=== PATIENT | female | born 1950 | race African-American/Black ===

== ENCOUNTER → 2023-08-18 08:51 | Outpatient (REF) | payer OTHER, SELFPAY | LOC: RCS 08:51 | PROVIDERS: ATTENDING PHYSICIAN Emergency Medicine | DX: I10 Essential (primary) hypertension (principal); R01.1 Cardiac murmur, unspecified; M25.511 Pain in right shoulder | CPT/HCPCS: 73030; 93306 ==

== ENCOUNTER → 2023-08-27 09:15 | Outpatient (REF) | payer OTHER, SELFPAY ==
[2023-08-27 09:41] LABS: % Basophils 0.4 % (0-2); % Eosinophils 0.9 % (0-6); % Lymphocytes 49.1 % (20.5-51.1); % Neutrophils 39.6 % (42.2-75.2); Absolute Lymphocytes 2.3 10^3/uL (1.2-3.4); Absolute Monocytes 0.5 10^3/uL (0.1-0.6); Absolute Neutrophils 1.8 10^3/uL (1.4-6.5); Hematocrit 34.3 % (37.0-47.0); Hemoglobin 11.7 g/dL (12.0-16.0); Mean Corp Hgb Conc. 34.1 g/dL (33.0-37.0); Mean Corpuscular Hgb 30.1 pg (27.0-31.0); Mean Corpuscular Volume 88.2 fL (81.0-99.0); Nucleated Red Blood Cells % 0 %; Platelet Count 178 10^3/uL (130-400); Red Blood Cell Count 3.89 10^6/uL (4.20-5.40); Red Cell Dist. Width 15.8 % (11.5-14.5); White Blood Cell Count 4.6 10^3/uL (4.8-10.8)
[2023-08-27 10:14] LABS: ALT (SGPT) 21 U/L (0-35); AST (SGOT) 29 U/L (14-36); Albumin 4.5 g/dl (3.5-5.0); Alkaline Phosphatase 78 U/L (38-126); Blood Urea Nitrogen 15 mg/dl (7-17); Calcium 10.3 mg/dl (8.4-10.2); Carbon Dioxide 26 mmol/L (22-30); Chloride 108 mmol/L (98-107); Glucose 83 mg/dl (70-99); Iron 118 ug/dl (37-170); Magnesium 2.2 mg/dl (1.6-2.3); Potassium 4.3 mmol/L (3.5-5.1); Sodium 138 mmol/L (135-145); Total Bilirubin 0.9 mg/dl (0.2-1.3); eGFR > 60.00
[2023-08-27 10:51] LABS: TSH Reflex To Free T4 0.76 uIU/ml (0.47-4.68)
[2023-08-27 11:20] LABS: Folate > 20.0 ng/ml (2.76-20); Vitamin B12 901 pg/ml (239-931)
== END ==
LOC: REG 09:15
PROVIDERS: ATTENDING PHYSICIAN Family Medicine
DX: R25.2 Cramp and spasm (principal)
CPT/HCPCS: 36415; 80053; 82607; 82746; 83540; 83735; 84443; 85025

== ENCOUNTER → 2023-09-07 14:19 | Outpatient (REF) | payer OTHER, SELFPAY | LOC: PAVMRI 14:19 | PROVIDERS: ATTENDING PHYSICIAN Emergency Medicine | DX: H93.A3 Pulsatile tinnitus, bilateral (principal); I10 Essential (primary) hypertension; R73.03 Prediabetes | CPT/HCPCS: 70544; 70547; 70553; A9575 ==

== ENCOUNTER 2023-09-17 09:59 | Outpatient (RCR) | payer OTHER, SELFPAY | END 2023-09-17 23:59 | disposition home or self-care (01) | LOC: RPT 09:59 | PROVIDERS: ATTENDING PHYSICIAN Emergency Medicine | DX: M25.511 Pain in right shoulder (principal); Z73.6 Limitation of activities due to disability | CPT/HCPCS: 97010; 97110; 97112; 97161 ==

== ENCOUNTER 2023-10-08 10:30 | Outpatient (RCR) | payer OTHER, SELFPAY | END 2023-10-26 07:35 | disposition home or self-care (01) | LOC: RPT 10:30 | PROVIDERS: ATTENDING PHYSICIAN Emergency Medicine | DX: M25.511 Pain in right shoulder (principal); Z73.6 Limitation of activities due to disability | CPT/HCPCS: 97010; 97110; 97140 ==

== ENCOUNTER → 2023-12-24 10:37 | Outpatient (REF) | payer OTHER, SELFPAY | LOC: RAD 10:37 | PROVIDERS: ATTENDING PHYSICIAN Urology; FAMILY PHYSICIAN Emergency Medicine | DX: R39.13 Splitting of urinary stream (principal); N31.9 Neuromuscular dysfunction of bladder, unspecified; N31.2 Flaccid neuropathic bladder, not elsewhere classified | CPT/HCPCS: 76770 ==

== ENCOUNTER → 2024-09-11 11:45 | Outpatient (REF) | payer OTHER, SELFPAY | LOC: RAD 11:45 | PROVIDERS: ATTENDING PHYSICIAN Emergency Medicine | DX: E04.2 Nontoxic multinodular goiter (principal) | CPT/HCPCS: 76536 ==

== ENCOUNTER → 2025-01-20 11:10 | Outpatient (REF) | payer MEDICARE, OTHER, SELFPAY | LOC: RAD 11:10 | PROVIDERS: ATTENDING PHYSICIAN Urology; FAMILY PHYSICIAN Emergency Medicine | DX: R39.13 Splitting of urinary stream (principal); N31.9 Neuromuscular dysfunction of bladder, unspecified | CPT/HCPCS: 76770 ==